=== PATIENT | male | born 1965 | race Caucasian/White ===

== ENCOUNTER 2019-10-20 14:08 | Inpatient (IN) | payer OTHER ==
[2019-10-20 14:56] LABS: Absolute Lymphocytes (CBC) 1.2 K/uL (0.7-4.9); Basophils % 0.9 % (0-1.3); Hematocrit 56.3 % (39.6-49.0); Lymphocytes % 26.8 % (15.3-44.8); MPV 8.8 fL (7.6-11.3); RBC Red Blood Cell Count 6.37 M/uL (4.33-5.43)
--- NOTE | 2019-10-20 15:01 | RAD REPORT ---
EXAM DESCRIPTION: CT - Ct Stroke Brain Wo Cont - 10/20/2019 2:50 pm CLINICAL HISTORY: Dizziness;Visual disturbances COMPARISON: No comparisons TECHNIQUE: Axial 5 millimeter thick images of the head were obtained without IV contrast. All CT scans are performed using dose optimization technique as appropriate and may include automated exposure control or mA/KV adjustment according to patient size. FINDINGS: No intracranial hemorrhage is present. Heterogeneous areas of decreased attenuation are pr esent in the medial occipital lobe and extending into the medial margin of the right temporal lobe. T his is a classic distribution for a right posterior cerebral artery infarction. The heterogeneity lik berto reflects a combination of acute and subacute CVA changes. No significant mass effect or edema. Sm all focus of decreased attenuation present in the right thalamus. Elsewhere no cortical edema or sulcal effacement. There is no midline shift. Ventricles are normal. N o extra-axial fluid collections. Visualized portions of the mastoid air cells, paranasal sinuses, and orbits are unremarkable. Findings telephoned the referring physician 1456 hours. IMPRESSION: Nonhemorrhagic infarction changes are present in the medial right occipital lobe and med ial right temporal lobe. Punctate decreased attenuation present in the right thalamus and probably in the right-side splenium corpus callosum. Pattern suggests a mix of acute and subacute CVA changes. This is primarily in the distribution of th e right posterior cerebral artery. No significant edema or mass effect. No midline shift.
[2019-10-20 15:17] LABS: BUN Blood Urea Nitrogen 4 mg/dL (7-18); Bicarbonate 26 mmol/L (21-32); Glucose Level 105 mg/dL (74-106); Sodium Level 136 mmol/L (136-145)
[2019-10-20 15:18] LABS: Protime INR 1.02
--- NOTE | 2019-10-20 15:22 | ER ---
Nurse's Notes [facility] Name: Marquez Scott Age: 54 yrs Sex: Male : 1965 Arrival Date: 10/20/2019 Time: 14:13 Bed 25 Private MD: Diagnosis: Right Occiptial Non-hemorrhagic CVA Presentation: 10/20 14:03 Presenting complaint: EMS states: 8 days ago pt was unable to see on the left sv peripheral area and today his vision worsened on the left side and in front of him. c/o neck and occipital head pain. 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 Dr Forte ordered an MRI but pt hasn't had it done yet because of insurance verification. BP 170/98 HR-100. Transition of care: patient was not received from another setting of care. Onset of symptoms was October 12, 2019. Risk Assessment: Do you want to hurt yourself or someone else? Patient reports no desire to harm self or others. Care prior to arrival: IV initiated. 20 GA, in the right antecubital area. 14:03 Method Of Arrival: EMS: [facility] sv 14:03 Acuity: KIRA 2 sv 14:15 Initial Sepsis Screen: Does the patient meet any 2 criteria? No. Patient's initial sv sepsis screen is negative. Does the patient have a suspected source of infection? No. Patient's initial sepsis screen is negative. Triage Assessment: 14:05 General: Appears in no apparent distress. comfortable, well developed, Behavior is sv calm, cooperative, appropriate for age. Pain: Complains of pain in base of the skull and posterior cervical area Pain currently is 4 out of 10 on a pain scale. Quality of pain is described as throbbing, Pain began 8 days ago. Neuro: Level of Consciousness is awake, alert, obeys commands, Oriented to person, place, time, situation, Ornamental Metal Worker are equal bilaterally Moves all extremities. Full function Gait is steady, Speech is normal, Facial symmetry appears normal, Facial symmetry: tongue is midline, Pupils are PERRLA, Reports dizziness, headache occipital area, unable to see in the left peripheral area until something is right in front of him. Denies numbness. Cardiovascular: Patient's skin is warm and dry. Pulses are 3+ in right radial artery and left radial artery Rhythm is sinus rhythm. Respiratory: Airway is patent Respiratory effort is even, unlabored, Respiratory pattern is regular, symmetrical. Derm: Skin is pink, warm \T\ dry. Musculoskeletal: Circulation, motion, and sensation intact. Range of motion: intact in all extremities. Historical: - Allergies: 14:33 No Known Allergies; sv - PMHx: 14:33 Hypertension; High Cholesterol; sv - Immunization history:: Adult Immunizations up to date. - Coronavirus screen:: The patient has NOT traveled to [place], [place], or [place] in the past 14 days. Proceed with normal triage process as indicated. The patient has NOT had contact with known/suspected case of Coronavirus? Proceed with normal triage procedures. - Social history:: Smoking status: Patient reports the use of cigarette tobacco products. - Ebola Screening: : No symptoms or risks identified at this time. Screenin:05 Abuse screen: Denies threats or abuse. Denies injuries from another. Nutritional sv screening: No deficits noted. Tuberculosis screening: No symptoms or risk factors identified. Fall Risk None identified. 15:27 Patient has been NPO before screening. The patient is alert, able to follow commands. sv The patient does not exhibit slurred or garbled speech The patient is not exhibiting difficulty speaking. The patient does not exhibit difficulty understanding words. The patient is able to swallow own secretions with no drooling or need for suction. Patient tolerated one teaspoon of water. No drooling, immediate coughing, gurgling, or clearing of the throat was noted. The patient tolerated 90mL of water. No drooling, immediate coughing, gurgling, or clearing of the throat was noted. The patient passed the bedside swallow screening. Oral medications may be given as ordered. Contact Physician for further diet orders. Provider notified of bedside swallow screening results: Yasir Cosme MD. Assessment: 14:42 Reassessment: Dr Cosme at the bedside. sv 15:30 Reassessment: Patient appears in no apparent distress at this time. No changes from sv previously documented assessment. Patient and/or family updated on plan of care and expected duration. Pain level reassessed. Patient is alert, oriented x 3, equal unlabored respirations, skin warm/dry/pink. 16:30 Reassessment: Patient appears in no apparent distress at this time. No changes from sv previously documented assessment. Patient and/or family updated on plan of care and expected duration. Pain level reassessed. Patient is alert, oriented x 3, equal unlabored respirations, skin warm/dry/pink. 17:36 Reassessment: Patient appears in no apparent distress at this time. No changes from sv previously documented assessment. Patient and/or family updated on plan of care and expected duration. Pain level reassessed. Patient is alert, oriented x 3, equal unlabored respirations, skin warm/dry/pink. 17:46 Reassessment: Called Dr Lehman to get admission orders placed, he stated he would be sv here to come see the pt and then place the orders. 18:40 Reassessment: Pt requested to go outside to smoke cigarette. Pt educated that this is a non smoking facility. Advised that he is responsible for his self until he returns to his room. Pt voiced understanding. 19:10 Reassessment: Patient appears in no apparent distress at this time. Patient and/or family updated on plan of care and expected duration. Pain level reassessed. Patient is alert, oriented x 3, equal unlabored respirations, skin warm/dry/pink. Vital Signs: 14:10 BP 144 / 88; Pulse 93; Resp 19; Temp 98; Pulse Ox 98% ; Pain 0/10; sv 14:30 BP 121 / 85; Pulse 93; Resp 19; Pulse Ox 96% ; sv 15:00 BP 137 / 89; Pulse 90; Resp 16; Pulse Ox 97% ; sv 15:30 BP 129 / 94; Pulse 99; Resp 17; Pulse Ox 97% ; sv 16:30 BP 144 / 86; Pulse 81; Resp 18; Pulse Ox 99% ; sv 17:00 BP 127 / 98; Pulse 88; Resp 20; Pulse Ox 96% ; sv 19:10 BP 113 / 84; Pulse 88; Resp 18; Pulse Ox 96% on R/A; NIH Stroke Scale Scores: 14:05 NIHSS Score: 2 sv ED Course: 14:03 Maintain EMS IV. Dressing intact. Good blood return noted. Site clean \T\ dry. Gauge \T\ sv site: 20G R AC. 14:10 Arm band placed on. sv 14:10 Patient has correct armband on for positive identification. Placed in gown. Bed in low sv position. Call light in reach. Side rails up X2. traffic monitor specialist on. Pulse ox on. NIBP on. Door closed. Warm blanket given. Head of bed elevated. 14:13 Patient arrived in ED. sv 14:14 Amanda Chavis, RN is Primary Nurse. sv 14:18 Triage completed. sv 14:34 Yasir Cosme MD is Attending Physician. kdr 14:40 Initial lab(s) drawn, by wv, sent to lab. sv 15:17 Baldemra Lehman is Hospitalizing Provider. kdr 15:20 EKG done, by technical delivery manager. reviewed by Yasir Cosme MD. at1 15:23 Protime (+inr) Sent. sv 15:23 Ptt, Activated Sent. sv 15:24 CT Stroke Brain w/o Contrast Sent. sv 15:36 Patient moved to MRI via wheelchair. sv 16:17 Stroke CXR 1 View Sent. sv 16:17 Basic Metabolic Panel Sent. sv 16:17 CBC with Diff Sent. sv 16:17 CT Stroke Brain w/o Contrast Sent. sv 16:17 Basic Metabolic Panel Sent. sv 16:17 CBC with Diff Sent. sv 16:17 Protime (+inr) Sent. sv 16:17 Ptt, Activated Sent. sv 16:17 Stroke CXR 1 View Sent. sv 17:04 MRI Stroke Protocol Sent. sg 17:36 Awaiting bed assignment. sv 18:10 Admitting physician to see patient. 19:52 No provider procedures requiring assistance completed. Patient admitted, IV remains in place. Administered Medications: 15:30 Drug: Aspirin Chewable Tablet 324 mg Route: PO; sv 16:00 Follow up: Response: No adverse reaction Outcome: 15:19 Decision to Hospitalize by Provider. kdr 19:53 Admitted to Med/surg accompanied by tech, family with patient, via wheelchair, room 203, with chart, Report called to Franchesca Garcia RN 19:53 Condition: stable 19:53 Instructed on the need for admit. 19:53 Patient left the ED. NIH Stroke Scale - NIH Stroke Score Date: 10/20/2019 Time: 14:05 Total Score = 2 1a. Level of Consciousness (LOC) - 0(Alert) 1b. Level of Consciousness (LOC) (Year \T\ Age) - 0(Both) 1c. LOC Commands (Open \T\ Closes Eyes/Disease Education Specialist) - 0(Both) 2. Best Gaze (Lateral Gaze Paresis) - 0(Normal) 3. Visual Field Loss - 2(Complete hemianopia) 4. Facial Palsy - 0(Normal) 5a. Left Arm: Motor (10-second hold) - 0(No drift) 5b. Right Arm: Motor (10-second hold) - 0(No drift) 6a. Left Leg: Motor (5-second hold - always test supine) - 0(No drift) 6b. Right Leg: Motor (5-second hold - always test supine) - 0(No drift) 7. Limb Ataxia (finger/nose \T\ heel/herndon - test with eyes open) - 0(Absent) 8. Sensory Loss (pinprick arms/legs/face) - 0(Normal) 9. Best Language: Aphasia (description/naming/reading) - 0(No aphasia) 10. Dysarthria (speech clarity - read or repeat words) - 0(Normal) 11. Extinction and Inattention (visual/tactile/auditory/spatial/personal) - 0(No abnormality) Initials: sv Signatures: Amanda Chavis, RN Francisco Land RN Yasir Day MD MD kdr Gonzales, Amanda, rfid technician EKG Tat1 Cindy Irene Amy, RN RN
--- NOTE | 2019-10-20 15:22 | EDPHYS ---
Physician Documentation [facility] Name: Marquez Scott Age: 54 yrs Sex: Male : 1965 Arrival Date: 10/20/2019 Time: 14:13 Bed 25 Private MD: ED Physician Yasir Cosme HPI: 10/20 18:47 This 54 yrs old Male presents to ER via EMS with complaints of Dizziness, kdr Loss Of Vision. 18:47 The patient is experiencing decreased vision. Onset: The symptoms/episode kdr began/occurred suddenly, 10 day(s) ago. Duration: the symptoms are continuous. Aggravated by nothing. Alleviated by nothing. Associated signs and symptoms: Pertinent positives: None. Pertinent negatives: None. Severity of symptoms: At their worst the symptoms were moderate in the emergency department the symptoms are unchanged. The patient has not experienced similar symptoms in the past. The patient has been recently seen by a physician: The patient had seen an banking pin adjuster and his bag checker and neurologist and had a referral for an MRI later this month. Historical: - Allergies: 14:33 No Known Allergies; sv - PMHx: 14:33 Hypertension; High Cholesterol; sv - Immunization history:: Adult Immunizations up to date. - Coronavirus screen:: The patient has NOT traveled to [place], [place], or [place] in the past 14 days. Proceed with normal triage process as indicated. The patient has NOT had contact with known/suspected case of Coronavirus? Proceed with normal triage procedures. - Social history:: Smoking status: Patient reports the use of cigarette tobacco products. - Ebola Screening: : No symptoms or risks identified at this time. ROS: 18:47 Constitutional: Negative for fever, chills, and weight loss, Eyes: Negative for injury, kdr pain, redness, and discharge, ENT: Negative for injury, pain, and discharge, Neck: Negative for injury, pain, and swelling, Cardiovascular: Negative for chest pain, palpitations, and edema, Respiratory: Negative for shortness of breath, cough, wheezing, and pleuritic chest pain, Abdomen/GI: Negative for abdominal pain, nausea, vomiting, diarrhea, and constipation, Back: Negative for injury and pain, MS/Extremity: Negative for injury and deformity, Skin: Negative for injury, rash, and discoloration, Psych: Negative for depression, anxiety, suicide ideation, homicidal ideation, and hallucinations, Allergy/Immunology: Negative for hives, rash, and allergies, Endocrine: Negative for neck swelling, polydipsia, polyuria, polyphagia, and marked weight changes, Hematologic/Lymphatic: Negative for swollen nodes, abnormal bleeding, and unusual bruising. 18:47 Neuro: Positive for visual changes, loss of left visual field. Exam: 18:47 Constitutional: This is a well developed, well nourished patient who is awake, alert, kdr and in no acute distress. Head/Face: Normocephalic, atraumatic. Eyes: Pupils equal round and reactive to light, extra-ocular motions intact. Lids and lashes normal. Conjunctiva and sclera are non-icteric and not injected. Cornea within normal limits. Periorbital areas with no swelling, redness, or edema. ENT: Nares patent. No nasal discharge, no septal abnormalities noted. Tympanic membranes are normal and external auditory canals are clear. Oropharynx with no redness, swelling, or masses, exudates, or evidence of obstruction, uvula midline. Mucous membranes moist. Neck: Trachea midline, no thyromegaly or masses palpated, and no cervical lymphadenopathy. Supple, full range of motion without nuchal rigidity, or vertebral point tenderness. No Meningismus. Chest/axilla: Normal chest wall appearance and motion. Nontender with no deformity. No lesions are appreciated. Cardiovascular: Regular rate and rhythm with a normal S1 and S2. No gallops, murmurs, or rubs. Normal PMI, no JVD. No pulse deficits. Respiratory: Lungs have equal breath sounds bilaterally, clear to auscultation and percussion. No rales, rhonchi or wheezes noted. No increased work of breathing, no retractions or nasal flaring. Abdomen/GI: Soft, non-tender, with normal bowel sounds. No distension or tympany. No guarding or rebound. No evidence of tenderness throughout. Back: No spinal tenderness. No costovertebral tenderness. Full range of motion. Skin: Warm, dry with normal turgor. Normal color with no rashes, no lesions, and no evidence of cellulitis. MS/ Extremity: Pulses equal, no cyanosis. Neurovascular intact. Full, normal range of motion. Psych: Awake, alert, with orientation to person, place and time. Behavior, mood, and affect are within normal limits. 18:47 Neuro: Cranial nerves: hononymous hemianopia noted. Vital Signs: 14:10 BP 144 / 88; Pulse 93; Resp 19; Temp 98; Pulse Ox 98% ; Pain 0/10; sv 14:30 BP 121 / 85; Pulse 93; Resp 19; Pulse Ox 96% ; sv 15:00 BP 137 / 89; Pulse 90; Resp 16; Pulse Ox 97% ; sv 15:30 BP 129 / 94; Pulse 99; Resp 17; Pulse Ox 97% ; sv 16:30 BP 144 / 86; Pulse 81; Resp 18; Pulse Ox 99% ; sv 17:00 BP 127 / 98; Pulse 88; Resp 20; Pulse Ox 96% ; sv 19:10 BP 113 / 84; Pulse 88; Resp 18; Pulse Ox 96% on R/A; NIH Stroke Scale Scores: 14:05 NIHSS Score: 2 sv MDM: 15:19 Patient medically screened. kdr 18:47 Data reviewed: vital signs, nurses notes, lab test result(s), EKG, radiologic studies. kdr Counseling: I had a detailed discussion with the patient and/or guardian regarding: the historical points, exam findings, and any diagnostic results supporting the discharge/admit diagnosis, lab results, radiology results, the need for further work-up and treatment in the hospital. 10/20 14:35 Order name: Basic Metabolic Panel kdr / 14:35 Order name: CBC with Diff kdr 10/20 14:35 Order name: Protime (+inr) kdr 10/20 14:35 Order name: Ptt, Activated kdr 10/20 14:35 Order name: Basic Metabolic Panel sv 10/20 14:35 Order name: CBC with Diff sv / 14:35 Order name: CT Stroke Brain w/o Contrast kdr 10/20 14:35 Order name: Protime (+inr) sv 10/20 14:35 Order name: Ptt, Activated sv 10/20 14:52 Order name: Glucose, Ancillary Testing; Complete Time: 15:04 EDMS 10/20 15:17 Order name: Basic Metabolic Panel EDMS 10/20 15:25 Order name: Protime (+INR) EDMS 10/20 15:25 Order name: PTT, Activated Partial Thromb EDMS 10/20 15:26 Order name: CBC with Automated Diff EDMS 10/20 14:35 Order name: Stroke CXR 1 View kdr 10/20 14:35 Order name: EKG; Complete Time: 14:36 kdr 10/20 14:35 Order name: Accucheck; Complete Time: 16:18 kdr 10/20 14:35 Order name: Cardiac monitoring; Complete Time: 16:18 kdr 10/20 14:35 Order name: EKG - Nurse/Tech; Complete Time: 16:18 kdr 10/20 14:35 Order name: CT Stroke Brain w/o Contrast sv 10/20 14:35 Order name: Stroke CXR 1 View sv 10/20 14:35 Order name: EKG; Complete Time: 14:36 sv 10/20 15:04 Order name: CT EDMS 10/20 15:04 Order name: MRI Stroke Protocol bd 10/20 15:55 Order name: RAD EDMS 10/20 16:42 Order name: Diet Heart Healthy; Complete Time: 16:44 sg 10/20 16:52 Order name: MRI EDMS 10/20 17:03 Order name: MRI EDMS 10/20 17:03 Order name: MRI EDMS 10/20 14:35 Order name: IV Saline Lock; Complete Time: 16:18 kdr 10/20 14:35 Order name: Labs collected and sent; Complete Time: 16:18 kdr 10/20 14:35 Order name: NPO; Complete Time: 16:19 kdr 10/20 14:35 Order name: O2 Per Protocol; Complete Time: 16:19 kdr 10/20 14:35 Order name: O2 Sat Monitoring; Complete Time: 16:19 kdr 10/20 14:35 Order name: Stroke Swallow Screen; Complete Time: 17:04 kdr 10/20 14:35 Order name: Accucheck; Complete Time: 15:23 sv 10/20 14:35 Order name: Cardiac monitoring; Complete Time: 15:23 sv 10/20 14:35 Order name: EKG - Nurse/Tech; Complete Time: 15:24 sv 10/20 14:35 Order name: IV Saline Lock; Complete Time: 15:24 sv 10/20 14:35 Order name: Labs collected and sent; Complete Time: 15:24 sv 10/20 14:35 Order name: NPO; Complete Time: 15:24 sv 10/20 14:35 Order name: O2 Per Protocol; Complete Time: 15:24 sv 10/20 14:35 Order name: O2 Sat Monitoring; Complete Time: 15:24 sv 10/20 14:35 Order name: Stroke Swallow Screen; Complete Time: 15:24 sv Administered Medications: 15:30 Drug: Aspirin Chewable Tablet 324 mg Route: PO; sv 16:00 Follow up: Response: No adverse reaction sg Disposition: 10/20/19 15:19 Hospitalization ordered by Baldemar Lehman for Inpatient Admission. Preliminary diagnosis is Right Occiptial Non-hemorrhagic CVA. - Bed requested for Telemetry/MedSurg (observation). - Status is Inpatient Admission. wh - Condition is Fair. - Problem is new. - Symptoms are unchanged. NIH Stroke Scale - NIH Stroke Score Date: 10/20/2019 Time: 14:05 Total Score = 2 1a. Level of Consciousness (LOC) - 0(Alert) 1b. Level of Consciousness (LOC) (Year \T\ Age) - 0(Both) 1c. LOC Commands (Open \T\ Closes Eyes/Taxicab Coordinator) - 0(Both) 2. Best Gaze (Lateral Gaze Paresis) - 0(Normal) 3. Visual Field Loss - 2(Complete hemianopia) 4. Facial Palsy - 0(Normal) 5a. Left Arm: Motor (10-second hold) - 0(No drift) 5b. Right Arm: Motor (10-second hold) - 0(No drift) 6a. Left Leg: Motor (5-second hold - always test supine) - 0(No drift) 6b. Right Leg: Motor (5-second hold - always test supine) - 0(No drift) 7. Limb Ataxia (finger/nose \T\ heel/herndon - test with eyes open) - 0(Absent) 8. Sensory Loss (pinprick arms/legs/face) - 0(Normal) 9. Best Language: Aphasia (description/naming/reading) - 0(No aphasia) 10. Dysarthria (speech clarity - read or repeat words) - 0(Normal) 11. Extinction and Inattention (visual/tactile/auditory/spatial/personal) - 0(No abnormality) Initials: sv Signatures: Dispatcher [employer] EDMS Sujey Zhao Stephanie, RN RN Yasir Cosme MD MD kdr Habalo, Winsy Francisco Martinez RN sg Corrections: (The following items were deleted from the chart) 18:39 15:19 Hospitalization Ordered by Baldemar Lehman for Inpatient Admission. bd Preliminary diagnosis is Right Occiptial Non-hemorrhagic CVA. Bed requested for Telemetry/MedSurg (observation). Status is Inpatient Admission. Condition is Fair. Problem is new. Symptoms are unchanged. kdr 19:53 18:39 10/20/2019 15:19 Hospitalization Ordered by Baldemar Lehman for Inpatient wh Admission. Preliminary diagnosis is Right Occiptial Non-hemorrhagic CVA. Bed requested for Telemetry/MedSurg (observation). Status is Inpatient Admission. Condition is Fair. Problem is new. Symptoms are unchanged. bd
[2019-10-20] MEDS ORDERED: ASPIRIN 81 MG CHEWABLE TABLET ONE (15:27)
--- NOTE | 2019-10-20 15:48 | RAD REPORT ---
EXAM DESCRIPTION: Lakeisha Single View10/20/2019 3:04 pm CLINICAL HISTORY: Hypertension/CVA COMPARISON: none FINDINGS: The lungs appear clear of acute infiltrate. The heart is normal size IMPRESSION: No acute abnormalities displayed
--- NOTE | 2019-10-20 16:43 | RAD REPORT ---
EXAM DESCRIPTION: MRI - MRA Neck W/Wo Cont - 10/20/2019 4:27 pm CLINICAL HISTORY: Visual disturbance COMPARISON: None. TECHNIQUE: Magnetic resonance angiogram of the neck was performed. 20 cc MultiHance was administered intravenously. 3D MIPS reconstruction performed FINDINGS: The common carotid, internal carotid and external carotid arteries do not demonstrate a si gnificant stenosis. An aneurysm is not seen. The vertebral arteries are codominant without visualization of an abnormality. IMPRESSION: Unremarkable MRA neck NASCET criteria used. Mild 0-49% stenosis Moderate 50-69% stenosis Severe 70-99% stenosis
--- NOTE | 2019-10-20 16:47 | RAD REPORT ---
EXAM DESCRIPTION: MRI - MRA Head Wo Cont - 10/20/2019 4:28 pm CLINICAL HISTORY: Visual disturbance COMPARISON: None. TECHNIQUE: Magnetic resonance angiogram was performed. 3D MIPS reconstruction performed FINDINGS: Signal is present within the very proximal right posterior cerebral artery. There is minim al signal within the remainder of the right posterior cerebral artery. The anterior cerebral, middle cerebral, left posterior cerebral, distal internal carotid and basilar arteries do not demonstrate a significant stenosis. An aneurysm is not displayed. IMPRESSION: Occlusion of the right posterior cerebral artery
--- NOTE | 2019-10-20 16:49 | RAD REPORT ---
EXAM DESCRIPTION: MRI - Brain W/Wo Cont - 10/20/2019 4:26 pm CLINICAL HISTORY: Visual disturbance COMPARISON: October 20, [address] TECHNIQUE: Axial, sagittal, and coronal magnetic images of the brain were obtained. 20 cc MultiHance administered intravenously FINDINGS: Diffusion-weighted/ ADC mapping sequences demonstrate abnormal signal within the medial right tempora l lobe, right occipital lobe, right thalamus and right posterior aspect of the corpus callosum. These areas are compatible with acute infarction . Some of these areas demonstrate enhancement. There is no evidence of hemorrhage. An extra-axial fluid collection is not noted. Fluid within the sinuses/mastoids is not seen IMPRESSION: Acute infarct involving the right temporal and right occipital lobes, right thalamus and right posterior corpus callosum
--- NOTE | 2019-10-20 17:17 | EKG ---
Test Date: 2019-10-20 Test Time: 15:11:24 Salesperson Parts: MABEL MEASUREMENT RESULTS: Intervals: Rate: 88 WA: 144 QRSD: 80 QT: 338 QTc: 408 [place]: P: 66 WA: 144 QRS: 62 T: 68 INTERPRETIVE STATEMENTS: Normal sinus rhythm Normal ECG Compared to ECG 04/14/2005 23:13:00 No significant changes Electronically Signed On 10-20-19 17:16:35 BLOCK HACKER by Bola Peñaloza
--- NOTE | 2019-10-20 18:24 | P.HP ---
Certification for Inpatient Patient admitted to: Inpatient With expected LOS: >2 Midnights Practitioner: I am a practitioner with admitting privileges, knowledge of patient current condition, hospital course, and medical plan of care. Services: Services provided to patient in accordance with Admission requirements found in Title 42 Section 412.3 of the Code of Federal Regulations Patient History Date of Service: 10/20/19 Reason for admission: Loss of left peripheral vision History of Present Illness: 54-year-old gentleman with a history of hypertension, hypercholesteremia and a smoker presented to the emergency department with a complaint of loss of left peripheral vision which has been present for about 10 days. 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 He stated he was experiencing numbness on his left side, clumsiness in his left hand, occasionally dropping items. His cardiology started him on statins. Patient states he has been taking 81 mg aspirin every day and has been compliant with it. He saw an poultry slaughterer who confirmed he has left peripheral vision loss and his symptoms were consistent with stroke. Patient was then referred to the ED to be evaluated. CT head done in the ED suggested acute CVA in the left occipital and temporal lobes. MRI of the brain performed confirmed acute infarct involving the right temporal and right occipital lobes, right thalamus and right posterior corpus callosum. MRA of the brain also reported occlusion of the right posterior cerebral artery. Neurologis Dr. Herbert was informed who recommended hospitalization for further workup. Patient denied any diplopia , denied any limb weakness, speech or swallow problem. Allergies No Known Allergies Allergy (Verified 10/20/19 20:19) Home Medications: lisinopriL [Lisinopril] 20 mg PO DAILY 10/20/19 Atorvastatin Calcium [Lipitor] 80 mg PO BEDTIME #30 tablet 10/21/19 Clopidogrel Bisulfate [Plavix] 75 mg PO DAILY #30 tablet 10/21/19 Folic Acid 1 mg PO DAILY #30 tablet 10/21/19 Thiamine Mononitrate (Vit B1) [Vitamin B-1] 100 mg PO DAILY #30 tablet 10/21/19 - Past Medical/Surgical History -: Hypertension -: Hypercholesterolemia - Family History Father -: Heart disease Sister -: Heart disease - Social History Smoking Status: Heavy Tobacco smoker (>10 cigarettes/day) Alcohol use: Yes CD- Drugs: No Place of Residence: Home Review of Systems Other: General: No fever, no malaise, no unintentional weight loss. Eyes: No eye discharge, Respiratory: No cough, no shortness of breath. CVS: No chest pain, no palpitation, no lightheadedness. GI: No abdominal pain, no nausea no vomit, no constipation, no diarrhea. Genitourinary: No dysuria, no urinary frequency, no incontinence, no hematuria. Musculoskeletal: No joint pains, or joint swelling, no gait instability. Neurology: No headache no asymmetric, weakness, no problem with swallowing. Except as documented, all other systems reviewed and negative. Physical Examination - Physical Exam General: Alert, In no apparent distress, Oriented x3 HEENT: Normocephalic, PERRLA, Mucous membr. moist/pink, EOMI, Sclerae nonicteric Neck: Supple, JVD not distended Respiratory: Clear to auscultation bilaterally, Normal air movement Cardiovascular: No edema, Regular rate/rhythm, Normal S1 S2 Capillary refill: <2 Seconds Gastrointestinal: Normal bowel sounds, Soft and benign, Non-distended, No tenderness Musculoskeletal: No swelling, No erythema Integumentary: No rashes, No tenderness/swelling Neurological: Normal gait, Normal speech, Normal strength at 5/5 x4 extr, Other (Left hemianopsia) - Studies Laboratory Data (last 24 hrs) 10/20/19 14:40: PT 12.0, INR 1.02, APTT 31.4 10/20/19 14:40: WBC 4.4, Hgb 18.0 H, Hct 56.3 H, Plt Count 143 L 10/20/19 14:40: Sodium 136, Potassium 4.0, BUN 4 L, Creatinine 0.81, Glucose 105 Assessment and Plan - Problems (Diagnosis) (1) Acute CVA (cerebrovascular accident) Status: Acute (2) Hypertension Status: Acute (3) Hypercholesteremia Status: Acute (4) Chronic alcohol abuse Status: Acute (5) Cerebral artery occlusion Status: Acute - Plan Admit to medical floor Telemetry to assess for afib Aspirin 162 mg daily Lipitor 80 mg daily Check lipid profile Obtain echocardiogram Permissive hypertension. Keep SBP between 140-180. Swallow evaluation. Neurology consult. Smoking and alcohol cessation advised. Watch for alcohol withdrawal and institute CIWA as needed. No emergent need for cerebral angiogram as the stroke event occured more than [address] Herbert recommends the cerebral angiogram to be done within a couple of weeks as an outpatient. Patient will need followup in [place] for the procedure. - Advance Directives Does patient have a Living Will: No Does patient have a Durable POA for Healthcare: No
[2019-10-20] MEDS ORDERED: ONDANSETRON 4 MG/2 ML VIAL IV PRN (20:18)
[2019-10-20 20:26] VITALS: BMI 28.9
[2019-10-20 20:27] VITALS: O2SAT 96
[2019-10-20] MEDS: NA CHLORIDE 0.9% 1,000 ML IV SCH (20:43)
[2019-10-20] MEDS ORDERED: ATORVASTATIN 20 MG TAB PO SCH (21:00)
[2019-10-20 21:43] LABS: Folic Acid, (Folate) 13.3 ng/mL (3.1-17.5); Troponin I < 0.02 ng/mL (0.0-0.045)
[2019-10-21 03:06] LABS: RPR (Rapid Plasma Reagin) NON-REACT (NON-REACT)
[2019-10-21 05:46] LABS: Absolute Lymphocytes (CBC) 1.5 K/uL (0.7-4.9); Basophils % 0.6 % (0-1.3); Hematocrit 50.3 % (39.6-49.0); Lymphocytes % 27.5 % (15.3-44.8); MPV 8.5 fL (7.6-11.3); RBC Red Blood Cell Count 5.76 M/uL (4.33-5.43)
[2019-10-21] MEDS: ACETAMINOPHEN 500 MG TAB PO PRN ×2 (07:22→11:22)
[2019-10-21] MEDS: NA CHLORIDE 0.9% 1,000 ML IV SCH (07:22)
[2019-10-21 07:27] LABS: BUN Blood Urea Nitrogen 6 mg/dL (7-18); Bicarbonate 28 mmol/L (21-32); Glucose Level 82 mg/dL (74-106); HDL Cholesterol 31 mg/dL (40-60); LDL Cholesterol, Calculated 73 (<130); Phosphorus 3.3 mg/dL (2.5-4.9); Potassium 3.8 mmol/L (3.5-5.1); Sodium Level 137 mmol/L (136-145)
[2019-10-21] MEDS ORDERED: ENOXAPARIN 40 MG/0.4 ML SQ SCH (09:00)
[2019-10-21] MEDS ORDERED: ASPIRIN EC 81 MG TAB PO SCH (09:00)
[2019-10-21] MEDS ORDERED: TRAMADOL HCL 50 MG TAB PO PRN (11:54)
[2019-10-21 12:26] VITALS: BP 128/81; TEMP 98
--- NOTE | 2019-10-22 02:04 | DS ---
Date of Discharge: 10/21/2019 Consultants: Dr. Herbert with Neurology. Discharge Diagnoses: 1. 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 2. Essential hypertension, stable. 3. Chronic alcohol abuse. 4. Hypercholesterolemia. 5. Cerebral artery occlusion. 6. Nicotine dependence with cigarette smoking. Hospital Course: Patient is a 54-year-old male with hypertension, hypercholesterolemia, nicotine dependence, and alcohol use, comes in with loss of left peripheral vision for about 10 days. Patient also had some numbness and clumsiness in his left side. Patient was started on statins by his auditing control clerk, is taking aspirin daily for ACS. The patient's son, commercial floor covering installer, confirmed left peripheral visual loss and consistent with stroke. Patient is admitted to the hospital for further evaluation. MRI of the brain showed acute infarct involving the right temporal and right occipital lobes, right thalamus and right posterior corpus callosum. MRA of the brain reported occlusion of the right posterior cerebral artery. Dr. Herbert was consulted. Echocardiogram was also done. The patient's lipid panel showed low HDL 31. He was counseled extensively regarding smoking and drinking and to completely stop those 2 habits. However, patient continued to go downstairs and smoke during the acute hospitalization. Hypercoagulable workup was also initiated. His RPR was negative. Remainder of the workup is pending. Patient did not have any other symptoms. He is able to ambulate well. Passed the bedside swallow study. He is able to tolerate his diet. He was then cleared for discharge from Neurology standpoint for outpatient followup for 4-vessel cerebral angiogram as an outpatient. Followup: Follow up with primary care physician in 2-3 days. Follow up with neurologist, Dr. Forte in 2 weeks. Return to ER for worsening condition. Medications: As per medication reconciliation list. Physical Examination: General: Awake, alert, and oriented x3. No acute distress. CV: S1, S2. Respiratory: Moving air well bilaterally. No wheezing. Gastrointestinal: Abdomen is soft, nontender, nondistended. Positive bowel sounds. Extremities: No clubbing, cyanosis, edema. Neurologic: Nonfocal. The patient does have left hemianopsia. ADDENDUM: Patient has seen Dr. Forte previously. Dr. Forte was contacted and updated on the patient. SA/MODL Voice ID: [id number] Report ID: [id number] MTDD
--- NOTE | 2019-10-22 07:51 | ECHO ---
HEIGHT: 5 ft 9 in WEIGHT: 196 lb 0 oz DATE OF STUDY: 10/21/[address]: primo tariq 2-DIMENSIONAL: YES M.MODE: YES DOPPLER: YES COLOR FLOW: YES TDS: NO PORTABLE: NO DEFINITY: NO BUBBLE STUDY: NO DIAGNOSIS: STROKE CARDIAC HISTORY: CATHERIZATION: NO SURGERY: NO PROSTHETIC VALVE: NO PACEMAKER: NO MEASUREMENTS (cm) DIASTOLIC (NORMALS) SYSTOLIC (NORMALS) IVSd 0.9 (0.6-1.2) LA Diam 2.9 (1.9-4.0) LVEF 64% LVIDd 4.5 (3.5-5.7) LVIDs 2.9 (2.0-3.5) %FS 35% LVPWd 1.1 (0.6-1.2) Ao Diam 2.8 (2.0-3.7) 2 DIMENSIONAL ASSESSMENT: RIGHT ATRIUM: NORMAL LEFT ATRIUM: NORMAL RIGHT VENTRICLE: NORMAL LEFT VENTRICLE: NORMAL TRICUSPID VALVE: NORMAL MITRAL VALVE: NORMAL PULMONIC VALVE: NORMAL AORTIC VALVE: NORMAL PERICARDIAL EFFUSION: NONE AORTIC ROOT: NORMAL LEFT VENTRICULAR WALL MOTION: NORMAL DOPPLER/COLOR FLOW: PHYSIOLOGIC TRICUSPID REGURGITATION. NORMAL RIGHT VENTRICULAR SYSTOLIC PRESSURE. COMMENTS: NORMAL 2D ECHOCARDIOGRAM WITH DOPPLER. TECHNOLOGIST: Shweta THORNTON
[2019-10-24 23:20] LABS: Albumin, (SPE) 4.3 g/dL (3.8-4.8); Alpha-1-Globulins 0.3 g/dL (0.2-0.3); Alpha-2-Globulins 0.7 g/dL (0.5-0.9); Gamma Globulins 1.6 g/dL (0.8-1.7); INTERPRETATION REPORT
[2019-10-25 14:19] LABS: Protein C Antigen 89 % (70-140)
[2019-10-26 11:13] LABS: Prothrombin Gene Analysis Test REPORT
== END 2019-10-21 15:55 | disposition home or self-care (01) | DRG 66 ==
LOC: ER 14:08 → ERHOLD 18:30 → 2ND 19:40
PROVIDERS: ADMIT Internal Medicine; ATTEND Internal Medicine
DX: I63.9 Cerebral infarction, unspecified (principal); H53.8 Other visual disturbances; I10 Essential (primary) hypertension; E78.00 Pure hypercholesterolemia, unspecified; R29.702 NIHSS score 2; F17.210 Nicotine dependence, cigarettes, uncomplicated
CPT/HCPCS: 36415; 70450; 70544; 70549; 70553; 71045; 80048; 80061; 81240; 81241; 82306; 82607; 82746; 82947; 83090; 83735; 84100; 84165; 84443; 84484; 85025; 85300; 85302; 85305; 85306; 85610; 85652; 85730; 86021; 86147; 86592; 92610; 93005; 93306; 97112; 97116; 97161; 99285; A9577; J1650; J7030